=== PATIENT | male | born 1965 | race Caucasian/White ===

== ENCOUNTER → 2017-08-27 08:31 | Outpatient (CLI) | payer BC, SELFPAY ==
[2017-08-27 10:19] LABS: Alanine Aminotransferase 29 U/L (12-78); Albumin Level 3.9 gm/dL (3.4-5.0); Albumin/Globulin Ratio 1.4 (1.1-1.8); Alkaline Phosphatase 60 U/L (46-116); Anion Gap 12.5 mEq/L (5-15); Aspartate Amino Transferase 16 U/L (15-37); Bilirubin,Total 0.5 mg/dL (0.2-1.0); Blood Urea Nitrogen 17 mg/dL (7-18); Calcium 8.8 mg/dL (8.5-10.1); Carbon Dioxide 26 mmol/L (21.0-32.0); Chloride 105 mmol/L (98-107); Chol/HDL Ratio 4.4 (1-3.5); Cholesterol 226 mg/dL (140-200); Creatinine,Serum 1.07 mg/dL (0.70-1.30); Estimated Glomerular Filt Rate 72 ml/min (>60); GFR (African American) 87 ML/MIN (>60); Globulin 2.7 gm/dl (1.3-3.2); Glucose 101 mg/dL (74-106); HDL Cholesterol 51 mg/dL (27-67); LDL Cholesterol 151 mg/dL (0-130); Potassium 4.5 mmoL/L (3.5-5.1); Sodium 139 mmol/L (136-145); Total Protein,Serum 6.6 gm/dL (6.4-8.2); Triglycerides 122 mg/dL (30-200); VLDL Cholesterol 24 mg/dL (0-40)
[2017-08-27 14:54] LABS: Hemoglobin A1C 5.7 % (0.0-7.0)
[2017-08-29 18:09] LABS: Vitamin D 25 Hydroxy 40.2 ng/mL (30.0-100.0)
== END ==
PROVIDERS: PCP Family Medicine; Visit Provider Family Medicine
DX: R73.01 Impaired fasting glucose (principal); E55.9 Vitamin D deficiency, unspecified; Z12.5 Encounter for screening for malignant neoplasm of prostate; Z13.220 Encounter for screening for lipoid disorders
CPT/HCPCS: 36415; 80053; 80061; 82652; 83036; G0103

== ENCOUNTER → 2018-05-17 07:21 | Outpatient (CLI) | payer BC, SELFPAY ==
[2018-05-17 10:00] LABS: Hemoglobin A1C 5.1 % (0.0-7.0)
[2018-05-17 10:17] LABS: Alanine Aminotransferase 27 U/L (12-78); Albumin Level 3.6 gm/dL (3.4-5.0); Albumin/Globulin Ratio 1.3 (1.1-1.8); Alkaline Phosphatase 42 U/L (46-116); Anion Gap 11.4 mEq/L (5-15); Aspartate Amino Transferase 18 U/L (15-37); Bilirubin,Total 0.4 mg/dL (0.2-1.0); Blood Urea Nitrogen 12 mg/dL (7-18); Calcium 8.6 mg/dL (8.5-10.1); Carbon Dioxide 28 mmol/L (21.0-32.0); Chloride 106 mmol/L (98-107); Creatinine,Serum 1.27 mg/dL (0.70-1.30); Estimated Glomerular Filt Rate 59 ml/min (>60); GFR (African American) 71 ML/MIN (>60); Globulin 2.7 gm/dl (1.3-3.2); Glucose 93 mg/dL (74-106); Potassium 4.4 mmoL/L (3.5-5.1); Prostate Specific Ag, Diagnost 4.31 ng/mL (0.0-4.0); Sodium 141 mmol/L (136-145); Thyroid Stimulating Hormone 0.78 uIU/ml (0.358-3.740); Total Protein,Serum 6.3 gm/dL (6.4-8.2)
== END ==
PROVIDERS: PCP Family Medicine; Visit Provider Family Medicine
DX: E16.2 Hypoglycemia, unspecified (principal); Z85.46 Personal history of malignant neoplasm of prostate
CPT/HCPCS: 36415; 80053; 83036; 84153; 84443

== ENCOUNTER → 2018-05-31 07:07 | Outpatient (CLI) | payer BC, SELFPAY ==
[2018-05-31 07:10] LABS: Microscopic, Urine URINE MICROSCOPIC (MICROSCOPIC)
[2018-05-31 07:42] LABS: Appearance,Urine CLEAR (Clear); Bilirubin,Urine Negative (Negative); Blood, Urine Negative (Negative); Color,Urine YELLOW (Yellow); Glucose,Urine (UA) Negative (Negative); Ketones,Urine Negative (Negative); Leukocyte Esterase,Urine Negative (Negative); Nitrate,Urine Negative (Negative); PH,Urine 7.5 (5.0-8.5); Protein,Urine Negative (Negative); Urobilinogen,Urine 0.2 EU/dl (0.2)
[2018-05-31 08:02] LABS: Bacteria,Urine Trace /lpf; Squamous Epithelial Cell,Urine Occasional #/hpf (0-5); WBC,Urine Occasional #/hpf (0-3)
[2018-06-01 15:20] LABS: PSA, Free 0.53 ng/mL; Prostate Specific Ag 3.8 ng/mL (0.0-4.0)
== END ==
PROVIDERS: Visit Provider Family Medicine
DX: R97.20 Elevated prostate specific antigen [PSA] (principal)
CPT/HCPCS: 36415; 81001; 84153; 84154

== ENCOUNTER → 2018-07-18 15:55 | Outpatient (CLI) | payer BC, SELFPAY | PROVIDERS: PCP Family Medicine; Visit Provider Family Medicine | DX: I49.9 Cardiac arrhythmia, unspecified (principal) | CPT/HCPCS: 93225; 93226 ==

== ENCOUNTER 2018-10-30 08:00 | Outpatient (RCR) | payer BC, SELFPAY | END 2018-10-30 08:05 | disposition home or self-care (01) | LOC: OT 08:00 | PROVIDERS: Visit Provider Family Medicine | DX: M25.522 Pain in left elbow (principal) | CPT/HCPCS: 97014; 97035; 97140; 97165; G0283 ==

== ENCOUNTER → 2018-12-30 08:47 | Outpatient (CLI) | payer BC, SELFPAY ==
[2018-12-30 09:54] LABS: Hemoglobin A1C 5.3 % (0.0-7.0)
[2018-12-30 10:20] LABS: Alanine Aminotransferase 25 U/L (12-78); Albumin Level 3.6 gm/dL (3.4-5.0); Albumin/Globulin Ratio 1.3 (1.1-1.8); Alkaline Phosphatase 53 U/L (46-116); Anion Gap 13.6 mEq/L (5-15); Aspartate Amino Transferase 18 U/L (15-37); Bilirubin,Total 0.4 mg/dL (0.2-1.0); Blood Urea Nitrogen 13 mg/dL (7-18); Calcium 8.4 mg/dL (8.5-10.1); Carbon Dioxide 27 mmol/L (21.0-32.0); Chloride 103 mmol/L (98-107); Chol/HDL Ratio 4.5 (1-3.5); Cholesterol 179 mg/dL (140-200); Creatinine,Serum 1.25 mg/dL (0.70-1.30); Estimated Glomerular Filt Rate 60 ml/min (>60); Free T4 (Free Thyroxine) 0.97 ng/dl (0.76-1.46); GFR (African American) 73 ML/MIN (>60); Globulin 2.7 gm/dl (1.3-3.2); Glucose 98 mg/dL (74-106); HDL Cholesterol 40 mg/dL (27-67); LDL Cholesterol 128 mg/dL (0-130); Potassium 4.6 mmoL/L (3.5-5.1); Prostate Specific Ag Screen 3.7 ng/mL (0.0-4.0); Sodium 139 mmol/L (136-145); Thyroid Stimulating Hormone 0.74 uIU/ml (0.358-3.740); Total Protein,Serum 6.3 gm/dL (6.4-8.2); Triglycerides 53 mg/dL (30-200); VLDL Cholesterol 11 mg/dL (0-40)
[2019-01-05 06:16] LABS: Vitamin D 25 Hydroxy 46.5 ng/mL (30.0-100.0)
== END ==
PROVIDERS: Visit Provider Family Medicine
DX: R97.20 Elevated prostate specific antigen [PSA] (principal); R53.83 Other fatigue; R73.01 Impaired fasting glucose; E55.9 Vitamin D deficiency, unspecified
CPT/HCPCS: 36415; 80053; 80061; 82652; 83036; 84403; 84439; 84443; G0103

== ENCOUNTER → 2020-02-26 08:24 | Outpatient (CLI) | payer BC, SELFPAY ==
[2020-02-26 09:13] LABS: Chloride 103 mmol/L (98-107)
[2020-02-26 09:14] LABS: Potassium 4.3 mmoL/L (3.5-5.1); Sodium 138 mmol/L (136-145)
[2020-02-26 09:16] LABS: Alanine Aminotransferase 21 U/L (12-78); Alkaline Phosphatase 51 U/L (38-126); Aspartate Amino Transferase 26 U/L (17-59); Bilirubin,Total 0.7 mg/dl (0.2-1.3); Blood Urea Nitrogen 17 mg/dl (9-20); Estimated Glomerular Filt Rate 77 ml/min (>60); GFR (African American) 94 ML/MIN (>60)
[2020-02-26 09:17] LABS: Albumin Level 4.2 g/dl (3.5-5.0); Albumin/Globulin Ratio 1.7 (1.1-1.8); Anion Gap 12.3 mEq/L (5-15); Calcium 8.9 mg/dl (8.4-10.2); Carbon Dioxide 27 mmol/L (22.0-30.0); Globulin 2.5 g/dL (1.3-3.2); Glucose 106 mg/dl (74-100); Total Protein,Serum 6.7 g/dl (6.3-8.2)
[2020-02-26 09:33] LABS: 25-OH Vitamin D, Total 42.4 ng/mL (30-100)
[2020-02-26 09:36] LABS: Hemoglobin A1C 5.4 % (4.0-6.0)
[2020-02-26 11:13] LABS: Prostate Specific Ag Screen 3.9 ng/ml (0.0-4.0)
[2020-02-26 13:34] LABS: Coronavirus 19 IgG Antibody Negative (Negative); Coronavirus 19 IgM Antibody Negative (Negative)
[2020-02-27 20:02] LABS: PSA, Free 0.57 ng/mL; Prostate Specific Ag 4.1 ng/mL (0.0-4.0)
[2020-02-28 10:31] LABS: Chol/HDL Ratio 5.3 (1-3.5); Cholesterol 235 mg/dl (140-200); HDL Cholesterol 44 mg/dl (40-60); Triglycerides 162 mg/dl (30-150); VLDL Cholesterol 32 mg/dL (0-40)
[2020-02-28 10:42] LABS: Direct LDL Cholesterol 163.06 mg/dL (100-129)
== END ==
PROVIDERS: Visit Provider Family Medicine
DX: Z03.818 Encounter for observation for suspected exposure to other biological agents ruled out (principal); R97.20 Elevated prostate specific antigen [PSA]; R73.01 Impaired fasting glucose; E55.9 Vitamin D deficiency, unspecified
CPT/HCPCS: 36415; 80053; 80061; 82306; 83036; 84153; 84154; 86328; G0103

== ENCOUNTER → 2020-11-21 14:25 | Outpatient (CLI) | payer BC, SELFPAY | PROVIDERS: PCP Family Medicine; Visit Provider Family Medicine | DX: Z20.822 Contact with and (suspected) exposure to COVID-19 (principal); U07.1 COVID-19 | CPT/HCPCS: U0003 ==

== ENCOUNTER → 2021-02-28 08:30 | Outpatient (CLI) | payer BC, SELFPAY | PROVIDERS: Visit Provider Internal Medicine Gastroenterology | DX: Z01.812 Encounter for preprocedural laboratory examination (principal); Z11.52 Encounter for screening for COVID-19; Z13.810 Encounter for screening for upper gastrointestinal disorder | CPT/HCPCS: U0003 ==

== ENCOUNTER 2021-03-02 10:08 | Day surgery (SDC) | payer BC, SELFPAY ==
[2021-02-27 11:48] VITALS: BMI 31.6
[2021-03-02 10:32] VITALS: BP 132/75; PULSE 52; RESP 16; TEMP 36.4; O2SAT 95
--- NOTE | 2021-03-02 11:39 | P.PN_ITS ---
[facility] Anesthesia Checklist - Structural Data Admitted From: Home Planned Operative Procedure/s: egd Consent for Planned Operative Procedure(s) Verified: Yes - Additional verifications Anesthesia Reactions: No Hx Blood Transfusions: No Blood Transfusion Reaction: No - Airway Assessment C-Spine Mobility Assessed: Yes TMJ Mobility Assessed: Yes Dentition: Good Dentition - Neurological Assessment Level of Consciousness: Awake, Alert, Appropriate - Anesthesia Plan Anesthesia Risk discussed: Yes Anesthesia Plan: Verified ASA Class: II Anesthesia Type: MAC [facility] History I have reviewed the patient's past medical history: Yes Medical History: Denies:: Cancer, Diabetes Mellitus Type 1, Diabetes Mellitus Type 2, Internal Pacemaker, MRSA, Seizures *Have you ever received a pneumonia vaccine?: No *Have you received a flu vaccine this season?: No Other Medical History: Denies: Blood Transfusion Reaction Anesthesia experience/problems:: none Other Surgeries: Yes: No Previous Surgery. No: Pacemaker Amputation: No Fractures: No - *Social History Last grade of school completed: Advanced degree Smoking Status: Never smoker Alcohol Intake: current Alcohol Intake Frequency:: a few times a week Substance Use Type: denies use *Occupational Status:: employed Housing: house Household Members: significant other *Travel in the last 8 weeks: None Family Hx:: No significant family history
--- NOTE | 2021-03-02 11:54 | HMH.PROC ---
[facility] Procedure Note Procedure Note:: Upper Endoscopy Procedure Report: Esophagogastroduodenoscopy with cold biopsies Endoscopost: Cristobal Corley II, MD Referring Physician: Cristi Castelan MD Date of Procedure: March 02, 2021 Equipment: Olympus GIF 190 standard upper endoscope Sedation: MAC sedation Indications: Mr. Lawler is a 55-year-old gentleman who reports minor reflux. He is unable to reduce Prilosec from twice daily dosing to once daily. He does state that this happened after his Covid?19 infection in October 2020 (11/15). He has had dyspepsia with midepigastric abdominal discomfort and some nausea. He reports some bloating and belching. He has had regular bowel function. He did have an upper endoscopy nearly 30 years ago in [place]. Procedure: Prior to the procedure, a history and physical exam was performed, and patient's medications and allergies were reviewed. The risks, benefits and alternatives of the sedation and procedure were discussed with the patient. All questions were answered and informed consent was obtained. The patient was brought to the procedure room. Patient identification and proposed procedure were verified by the physician and the nurse. The patient was placed in a left lateral decubitus position and the scope was passed under direct vision. Throughout the procedure, the patient's blood pressure, pulse, and oxygen saturations were monitored continuously. The upper GI endoscopy was accomplished without difficulty. The patient tolerated the procedure well. Findings: The scope was passed directly into the upper esophagus and advanced to the third portion of the duodenum. The post bulbar duodenum and duodenal bulb were normal with normal mucosa and conniventes. The scope was withdrawn through a normal duodenal bulb and pylorus into the stomach. There was bile reflux with mild linear reactive gastropathy of the antrum. The remainder of the body and fundus of the stomach were grossly normal. Upon retroflexion there was a small 1 to 2 cm sliding hiatal hernia. 2 biopsies were taken in the antrum and along the lesser curvature for histology to rule out gastritis and/or H pylori. There was a gastric fundic polyp that was removed via cold biopsy. The scope was then withdrawn into the esophagus. There was no evidence of reflux esophagitis or Lipscomb's. There was a serrated Z-line suggestive of nonerosive GERD. Biopsies were taken at the GE junction. There was mild esophageal dysmotility with tertiary contractions. The remainder of the esophageal mucosa was normal. Impression: 1. Nonerosive GERD with mild esophageal dysmotility and very small sliding 1 to 2 cm hiatal hernia 2. Bile reflux with mild linear reactive gastropathy 3. Gastric fundic polyp Plan: I will follow-up the biopsies. 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 We will discuss additional dietary measures and treatment options. I suspect this may be related to some obstipation. I would consider FDgard. The patient does have uncomplicated GERD and thus I would like to reduce PPI therapy. I will see patient back again at time of colonoscopy.
[2021-03-02 12:00] VITALS: BP 95/57; PULSE 44; RESP 12; TEMP 36.4; O2SAT 93
[2021-03-02 12:10] VITALS: BP 120/70; PULSE 53; RESP 16; O2SAT 96
[2021-03-02 12:20] VITALS: BP 119/82; PULSE 53; RESP 16; O2SAT 96
[2021-03-02 12:30] VITALS: PULSE 56; RESP 16; TEMP 36.4; O2SAT 99
[2021-03-02 13:41] VITALS: O2SAT 99
== END 2021-03-02 12:30 | disposition home or self-care (01) ==
LOC: OUTP 10:11
PROVIDERS: PCP Family Medicine; Visit Provider Internal Medicine Gastroenterology
PROC: 0DJ08ZZ Inspection of Upper Intestinal Tract, Via Natural or Artificial Opening Endoscopic (ICD-10-PCS; CPT 43235; principal; 2021-03-02 11:00)
DX: K30 Functional dyspepsia (principal); K21.9 Gastro-esophageal reflux disease without esophagitis; K22.4 Dyskinesia of esophagus; K31.9 Disease of stomach and duodenum, unspecified; K44.9 Diaphragmatic hernia without obstruction or gangrene; K31.7 Polyp of stomach and duodenum; Z79.899 Other long term (current) drug therapy
CPT/HCPCS: 43239

== ENCOUNTER → 2021-04-24 16:40 | Outpatient (CLI) | payer BC, SELFPAY | PROVIDERS: Visit Provider Internal Medicine Gastroenterology | DX: Z01.812 Encounter for preprocedural laboratory examination (principal); Z11.52 Encounter for screening for COVID-19; Z12.11 Encounter for screening for malignant neoplasm of colon | CPT/HCPCS: C9803; U0003; U0005 ==

== ENCOUNTER 2021-04-27 09:53 | Day surgery (SDC) | payer BC, SELFPAY ==
[2021-04-23 14:26] VITALS: BMI 30.5
[2021-04-27 10:21] VITALS: BP 135/75; PULSE 55; RESP 18; TEMP 36.6; O2SAT 98
--- NOTE | 2021-04-27 10:37 | HMH.ANESCL ---
[facility] Anesthesia Checklist - Patient Identification Patient Identification: Arm Band, Verbal (Name & ) - Structural Data Admitted From: Home Planned Operative Procedure/s: Colonoscopy Consent for Planned Operative Procedure(s) Verified: Yes Verified Documents: Surgical Consent - NPO Status Verified Time NPO: 05:00 - Additional verifications Anesthesia Reactions: No Hx Blood Transfusions: No Blood Transfusion Reaction: No - Airway Assessment C-Spine Mobility Assessed: Yes TMJ Mobility Assessed: Yes Dentition: Good Dentition - Neurological Assessment Level of Consciousness: Awake, Alert, Appropriate - Anesthesia Plan Anesthesia Risk discussed: Yes ASA Class: II Anesthesia Type: General [facility] History Medical History: Denies:: Cancer, Diabetes Mellitus Type 1, Diabetes Mellitus Type 2, Internal Pacemaker, MRSA, Seizures *Have you ever received a pneumonia vaccine?: No *Have you received a flu vaccine this season?: No Other Medical History: Denies: Blood Transfusion Reaction Anesthesia experience/problems:: no issues Other Surgeries: Yes: No Previous Surgery. No: Pacemaker Amputation: No Fractures: No - *Social History Last grade of school completed: High school graduate Smoking Status: Never smoker Alcohol Intake: current Alcohol Intake Frequency:: a few times a week Substance Use Type: denies use *Occupational Status:: employed Housing: house Household Members: significant other *Travel in the last 8 weeks: None Family Hx:: No significant family history
--- NOTE | 2021-04-27 11:39 | P.PCN_ITS ---
[facility] Procedure Note Procedure Note:: Colonoscopy Procedure Report: Colonoscopy with cold snare polypectomy Endoscopist: Cristobal Corley II, MD Referring physician: Cristi Castelan MD Date of Procedure: April 27, 2021 Equipment: Olympus 190 variable stiffness pediatric colonoscope Sedation: MAC sedation Indication: Mr. Lawler is a 56-year-old gentleman who is here for initial screening colonoscopy. He reports no abdominal pain, weight loss, change in his bowel habits or rectal bleeding. He reports no family history of colon cancer. Procedure: Prior to the procedure, a history and physical exam was performed, and patient's medications and allergies were reviewed. The risks, benefits and alternatives of the sedation and procedure were discussed with the patient. All questions were answered and informed consent was obtained. The patient was brought to the procedure room. Patient identification and proposed procedure were verified by the physician and the nurse. The patient was placed in a left lateral decubitus position and the scope was passed under direct vision. Throughout the procedure, the patient's blood pressure, pulse, and oxygen saturations were monitored continuously. The colonoscopy was accomplished without difficulty. The patient tolerated the procedure well. Findings: On digital rectal examination there was normal rectal tone. There were no external hemorrhoids. The prostate was 2-3+, mildly firm but symmetric without nodules. The colonoscope was introduced through the anal canal to the rectum and advanced to the cecum. The ileocecal valve and appendiceal orifice were identified. The scope was advanced a short distance into the ileum which appeared grossly normal. The scope was then withdrawn into the colon. The cecum, ascending and transverse colon and mucosa were grossly normal. There was a 4 mm polyp in the descending colon removed via cold snare polypectomy. There were mildly scattered diverticuli throughout the descending and sigmoid colon (LEFT colon). The rectum itself was normal. Upon retroflexion within the rectum there were grade 1-2 internal hemorrhoids. The preparation was excellent throughout with [place] Preparation Score of 9. The cecal time was 12 minutes. Impression: 1. Diminutive descending colon polyp 2. Mild left-sided diverticulosis 3. Grade 1-2 internal hemorrhoids Plan: I will follow up the polyp pathology and recommend repeat colonoscopy again in 7-10 years based upon the polyp histology. I would encourage bulking fiber supplementation on a long-term daily maintenance basis.
[2021-04-27 11:43] VITALS: BP 111/70; PULSE 46; RESP 12; TEMP 36.3; O2SAT 94
[2021-04-27 11:53] VITALS: BP 111/72; PULSE 42; RESP 12; O2SAT 95
[2021-04-27 12:03] VITALS: BP 127/72; PULSE 64; RESP 16; O2SAT 98
[2021-04-27 12:13] VITALS: BP 130/79; PULSE 62; RESP 16; TEMP 36.3; O2SAT 98
[2021-04-27 13:27] VITALS: O2SAT 94
== END 2021-04-27 12:13 | disposition home or self-care (01) ==
LOC: OUTP 09:54
PROVIDERS: PCP Family Medicine; Visit Provider Internal Medicine Gastroenterology
PROC: 0DJD8ZZ Inspection of Lower Intestinal Tract, Via Natural or Artificial Opening Endoscopic (ICD-10-PCS; CPT 45378; principal; 2021-04-27 11:00)
DX: Z12.11 Encounter for screening for malignant neoplasm of colon (principal); K63.5 Polyp of colon; K57.32 Diverticulitis of large intestine without perforation or abscess without bleeding; K64.0 First degree hemorrhoids; Z79.899 Other long term (current) drug therapy
CPT/HCPCS: 45385

== ENCOUNTER → 2022-04-28 09:02 | Outpatient (CLI) | payer BC, SELFPAY ==
[2022-04-28 10:27] LABS: Anion Gap 12.5 mEq/L (5-15); Blood Urea Nitrogen 11 mg/dl (9-20); Carbon Dioxide 26 mmol/L (22.0-30.0); Chloride 104 mmol/L (98-107); Chol/HDL Ratio 4.4 (1-3.5); Cholesterol 201 mg/dl (140-200); Estimated Glomerular Filt Rate 86 ml/min (>60); GFR (African American) 105 ML/MIN (>60); Glucose 95 mg/dl (74-100); HDL Cholesterol 46 mg/dl (40-60); Potassium 4.5 mmoL/L (3.5-5.1); Sodium 138 mmol/L (136-145); Triglycerides 146 mg/dl (30-150); VLDL Cholesterol 29 mg/dL (0-40)
[2022-04-28 10:38] LABS: Direct LDL Cholesterol 125.62 mg/dL (100-129)
[2022-04-28 10:44] LABS: 25-OH Vitamin D, Total 55.3 ng/mL (30-100)
[2022-04-28 10:57] LABS: Prostate Specific Ag, Diagnost 3.55 ng/ml (0.0-4.0)
[2022-04-28 11:18] LABS: Hemoglobin A1C 5.5 % (4.0-6.0)
== END ==
PROVIDERS: PCP Family Medicine; Visit Provider Family Medicine
DX: R73.01 Impaired fasting glucose (principal); E55.9 Vitamin D deficiency, unspecified; R97.20 Elevated prostate specific antigen [PSA]; Z13.220 Encounter for screening for lipoid disorders
CPT/HCPCS: 36415; 80048; 80061; 82306; 83036; 84153

== ENCOUNTER → 2024-06-01 06:11 | Outpatient (CLI) | payer BC, SELFPAY | LOC: SL 06:12 | PROVIDERS: PCP Family Medicine; Visit Provider Family Medicine | DX: G47.10 Hypersomnia, unspecified (principal); R06.83 Snoring | CPT/HCPCS: G0399 ==

== ENCOUNTER 2024-07-10 15:00 | Outpatient (RCR) | payer BC, SELFPAY ==
--- NOTE | 2024-05-02 11:58 | HMH.PTOPEV ---
PT Outpatient Evaluation Rehab PT Outpatient Evaluation Start: 05/02/24 10:15 Freq: Status: Active Protocol: Document 05/02/24 10:46 DIVINA (Rec: 05/02/24 11:58 DIVINA [id number]) E-signed By Chucho Ballard, PT Outpatient Therapy Subjective History Subjective History Pt reports h/o chronic neck and right UE pain for ~6 months, w/exacerbation over the last ~3 months. Pt reports neck began w/insidious onset, intermittent experiences radicular s/s down right UE to hand including weakness, pain , and N&T. 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 New diagnosis of cancer in past 12 No months? Chief Complaint Pain,Stiff,Paresthesia, Weakness Symptom Type Ache,Sharp,Dull,Numbness, Shooting Symptoms Relieved By Rest/Positioning,Prescription Meds Symptoms Aggravated By Sitting,Bending/Stooping Prior Functional Limitations Desk Work/Reading,Driving, Sitting Current Functional Limitations Desk Work/Reading,Driving, Sitting Symptom Description Constant but Variable Level of pain today (0-10) 4 Pain scale - at its best (0-10) 3 Pain scale - at its worst (0-10) 8 Cervical Eval Palpation Cervical Muscles R Cervical Paraspinal,L Cervical Paraspinal,R CT Junction,R Upper Trapezius,L Upper Trapezius,R Thoracic Paraspinals,L Thoracic Paraspinals Posture Head/C-Spine Posture Sitting Position Flexed Head/C-Spine Posture Standing Position Flexed Flexibility Deficits Upper Trapezius Muscle Length (L) Mild Tightness,(R) Moderate Tightness Pectoralis Major Muscle Length (R) Moderate Tightness,(L) Moderate Tightness Pectoralis Minor Muscle Length (R) Moderate Tightness,(L) Moderate Tightness Passive Joint Mobility Cervical PIVM WNL: R OA L OA R AA L AA R C2/3 L C2/3 R C3/4 L C3/4 R C4/5 L C4/5 R C5/6 L C5/6 R C6/7 L C6/7 R C7/T1 L C7/T1 AROM Cervical Spine Extension Active Range of 0-40 Motion (degrees) Cervical Spine Flexion Active Range of 0-55 Motion (degrees) Cervical Spine Right Lateral Flexion 0-40 Active Range of Motion (degrees) Cervical Spine Left Lateral Flexion 0-60 Active Range of Motion (degrees) Cervical Spine Right Rotation Active 0-65 Range of Motion (degrees) Cervical Spine Left Rotation Active 0-65 Range of Motion (degrees) MMT Bilateral Deltoid (C5) 5 Normal Biceps Brachii Strength Grade 5 Normal Wrist Extension Strength Grade 5 Normal Triceps Brachii Strength Grade 5 Normal Wrist Flexion Strength Grade 5 Normal Extensor Pollicis Longus Strength Grade 4 Good Finger Abduction Strength Grade 5 Normal Special Test C-Spine Foraminal Compression ([place]) Negative Left,Positive Right Test C-Spine Foraminal Distraction Test Positive Outpatient Therapy Assessment Impairments Problems/Impairmments Palpation Tenderness,Impaired Range of Motion,Impaired Sitting,Impaired Driving, Impaired Desk/Computer Activities,Subjective C/O Pain ,Impaired Self Care/Self Management Prognosis Rehab Potential Good Clinical Impression Consistent with Diagnosis Yes Short Term Goals Number of Weeks 4 Decreased Palpation Tenderness Yes: 1-2/4 cervical and thoracic mm Increase Range of Motion Yes: 75% of WFL CROM Increase Ability to Sit Yes: 30MIN Increase Ability to Drive/Ride in Car Yes: 30MIN Improve Tolerance to Desk/Computer Yes: 30MIN Activities Decrease Subjective C/O Pain Yes: 5/10 W/ABOVE ACTIVITIES Patient to be Ind w/ HEP Yes Prison Goals Number of Weeks 6-8 Decreased Palpation Tenderness Yes: 0-1/4 CERVICAL AND THORACIC MM Increase Range of Motion Yes: WFL CROM Increase Ability to Sit Yes: 60MIN Increase Ability to Drive/Ride in Car Yes: 60MIN Improve Tolerance to Desk/Computer Yes: 60MIN Activities Decrease Subjective C/O Pain Yes: 0-2/10 W/ABOVE ACTIVITIES Patient to be Ind w/ Advanced HEP Yes Outpatient Therapy Plan of Care Treatment Plan May Include Therapeutic Exercise Including Home Yes Exercise Program Manual Therapy Techniques Yes Neuromuscular Re-education Yes Therapeutic Activities to Return to Yes Previous Functional/Work Level ADL/Self Care Education Yes Mechanical Traction Yes Dry Needling Yes Thermal Modalities Yes Electrical Stimulation Yes Ultrasound/Phonophoresis Yes Eval/Re-Eval Yes Frequency Times per week 2-3 Duration Number of Weeks 6-8 Addendums This patient is a candidate for social No or vocational rehab? Patient/Guardian verbally acknowledges Yes understanding of treatment program and consents to further treatment? Patient/Guardian verbally acknowledges Yes understanding of diagnosis, prognosis and goals for treatment? Eval Complexity PT Charges 44929 - Moderate Complexity Shoulder/Elbow Eval Shoulder Objective Measurements Elbow Objective Measurements PHYSICIAN CERTIFICATION: I certify the specified therapy services for Santana Lawler are required, authorized, and reviewed every 30 days.
--- NOTE | 2024-06-04 13:51 | HMH.RHREAS ---
Rehab Reassessment Rehab OP Re-assessment Start: 05/02/24 10:15 Freq: Status: Active Protocol: Document 06/04/24 11:22 MALCOLMMATILDE (Rec: 06/04/24 13:51 SHAYNAFUNMI [id number]) E-signed By Chucho Ballard, PT Rehab Re-assessment Subjective Subjective Pt reports continued improvement in both neck and right shoulder pain. 'I'm able to golf without issue, and I drove a fair amount over the weekend and it didn't really cause any issues.' Pt does still report discomfort w/ prolonged positioning at work- station in office setting despite making some ergonomic changes. Pt reports 4/10 neck and right shoulder area pain on VAS, and denies any radicular s/s in RUE. Objective Objective Notes CROM: FLX 0-60 ,EXT 0-65 , B/L SB 0-55 , B/L ROT 0-70 . TTP: CERVICO-THORACIC PARASPINAL MM 1/4 BILATERALLY, BILATERAL UT MM 1/4, POSTERIOR RIGHT SH/RTC MM 1-2/ 4, ANTERIOR RTC MM 1/4 MMT: RIGHT SHOULDER RTC MM 4+/ 5 Assessment Progress Assessment Progressing as Expected Assessment Notes IMPROVED ROM, TTP, AND OVERALL FUNCTION Patient goals met STG'S 01/07 LTG'S 11/07 Goals Not Met STG'S 10/07, LTG'S 12/07 Plan Plan Pt to continue w/skilled P.T. to make further improvements in CROM, right shoulder AROM, strength, and TTP to allow for optimal function Frequency of Therapy 1-2x/wk Duration of therapy 3-5wks Time and Billing Re-Eval Time 12 Re-Eval Billing Units 1 Charge for PT reassessment? Yes PHYSICIAN CERTIFICATION: I certify the specified therapy services for Santana Lawler are required, authorized, and reviewed every 30 days.
--- NOTE | 2024-07-04 14:58 | HMH.RHREAS ---
Rehab Reassessment Rehab OP Re-assessment Start: 05/02/24 10:15 Freq: Status: Active Protocol: Document 07/04/24 13:49 DIVINA (Rec: 07/04/24 14:58 SHAYNAFUNMI [id number]) E-signed By Chucho Ballard, PT Rehab Re-assessment Subjective Subjective Pt reports continued improvement in neck and right shoulder pain as well as function, and reports recently driving as long as 3 hrs for a work-related trip and no having any increased neck discomfort. Objective Objective Notes AROM: RIGHT SHOULDER FLX WFL, ABD WFL W/O PAINFUL ARC CROM: FLX 0-60 ,EXT 0-65 , B/L SB 0-60 , B/L ROT 0-70 . TTP: CERVICO-THORACIC PARASPINAL MM 1/4 BILATERALLY, BILATERAL UT MM 1/4, POSTERIOR RIGHT SH/RTC MM 0-1/ 4, ANTERIOR RTC MM 1/4, CT JUNCTION S.P. 1-2/4 MMT: RIGHT SHOULDER RTC MM 4+/ 5 Assessment Progress Assessment Progressing as Expected Assessment Notes Pt w/slight improvement in TTP in neck and shoulder musculature, and has exhibited significant improvement in right shoulder AROM w/ elimination of painful arc, as well as slight improvement in CROM Patient goals met STG'S 03/09 LTG'S 01/07 Goals Not Met STG'S 08/09, LTG'S 10/07 Plan Plan Pt to continue w/skilled P.T. to make further improvements in CROM, right shoulder/ postural strength, and TTP to allow for optimal function Frequency of Therapy 1-2x/wk Duration of therapy 2-4wks Time and Billing Re-Eval Time 12 Re-Eval Billing Units 0 Charge for PT reassessment? No PHYSICIAN CERTIFICATION: I certify the specified therapy services for Santana Lawler are required, authorized, and reviewed every 30 days.
== END 2024-07-10 23:59 | disposition home or self-care (01) ==
LOC: PT 15:00
PROVIDERS: Visit Provider Family Medicine
DX: M54.2 Cervicalgia (principal); M54.12 Radiculopathy, cervical region; M79.601 Pain in right arm
CPT/HCPCS: 97012; 97014; 97110; 97140; 97163; 97164; G0283

== ENCOUNTER 2025-02-26 13:00 | Outpatient (RCR) | payer BC, SELFPAY ==
--- NOTE | 2025-01-30 17:34 | HMH.PTOPEV ---
PT Outpatient Evaluation Rehab PT Outpatient Evaluation Start: 01/30/25 15:58 Freq: Status: Active Protocol: Document 01/30/25 15:58 ALAIYAH (Rec: 01/30/25 17:33 [email or web address] [id number]) E-signed By Gustavo Frederick, PT Outpatient Therapy Subjective History Subjective History Pt is a 59 yom who is referred to [facility] outpatient PT for recurrent low back pain with right sided sciatica. The pt reports that this began in 2012 after he ran a half marathon. The pt reports that he will have flare ups, which he typically will manage with stretching and muscle relaxers. Pt reports that he has been to PT before and reports that he responded well to traction and stim. Pt reports that sitting and driving are his biggest difficulties. PMH: none Occupation: [employer] New diagnosis of No cancer in past 12 months? Chief Complaint Pain,Stiff Symptom Type Burning Symptoms Relieved By Heat Symptoms Aggravated Sitting By Prior Functional None Limitations Current Functional Lifting,Sitting,Squatting,Bending/Stooping Limitations Symptom Description Constant but Variable,Activity Dependent Level of pain today 3 (0-10) Pain scale - at its 2 best (0-10) Pain scale - at its 7 worst (0-10) Lumbopelvic Eval Posture Thoracic Spine Increased Kyphosis Posture Standing Position Lumbar Spine Posture Flattened Standing Position Palapation tenderness bilateral lumbar spinal Yes: L3-L5 TTP 3/4 tenderness paraspinal Yes: L3-L5 R side TTP 3/4 tenderness Accessory Movement L3 bilateral L4 bilateral L5 bilateral Range of Motion Lumbar Spine Active 75% Flexion Range of Motion (degrees) Lumbar Spine Active 10% Extension Range of Motion (degrees) Left Lumbar Spine 50% Lateral Flexion Active Range of Motion (degrees) Right Lumbar Spine 50% Lateral Flexion Active Range of Motion (degrees) Lumbar Spine ROM Soft Tissue Tightness,Pain Limitations Manual Muscle Test Bilateral Knee Extension 5 Normal Strength Grade Knee Flexion 5 Normal Strength Grade Hip Flexion Strength 5 Normal Grade Hip Abduction 5 Normal Strength Grade Hip Adduction 5 Normal Strength Grade Hip External 5 Normal Rotation Strength Grade Altered Sensation Comment Intact to LT globally Special Tests Lumbar Spine Screen Positive Sciatic Nerve Positive Right Tension Test Sacroiliac Joint Negative Right Compression Test Sacroiliac Joint Negative Right Distraction Test Lumbar Spine [place] Negative Right Test Oswestry Index Section 1 Pain Intensity The pain comes and goes and is moderate Section 2 Personal Care ( my way of washing or dressing even though it causes Washing,Dresing) some pain Section 3 Lifting Pain prevents me from lifting weights off the floor Section 4 Walking I have some pain when walking but it does not increase with distance Section 5 Sitting Pain prevents me from sitting for more than one hour Section 6 Standing I have some pain on standing, but it does not increase with time Section 7 Sleeping I get pain in bed, but it does not prevent me from sleeping well Section 8 Social Life My social life is normal but increases the degree of pain Section 9 Traveling I get extra pain while traveling, but it does not compel me to seek al Section 10 Changing Degreee of My pain is gradually getting worse Pain Score and Risk Level Oswestry Sc 17 Oswestry Risk Level Moderate Disability Miscellaneous Dx PT Eval Objective Objective Abdominal Strength: 3/5 Outpatient Therapy Assessment Impairments Problems/ Palpation Tenderness,Impaired Range of Motion,Impaired Impairmments Strength,Impaired Walking,Impaired Sitting,Impaired Bending,Impaired Work Activities,Subjective C/O Pain Prognosis Rehab Potential Good Clinical Impression Consistent with Yes Diagnosis Consistent with Sciatic (M54.3) Short Term Goals Number of Weeks 4 Decreased Palpation Yes: 2/4 to TTP assessment above Tenderness Increase Range of Yes: 25-50% Lumbar extension Motion Increase Strength Yes: 4/5 to Abdominal msk Increase Ability to Yes: 1 hour without increasing symptoms Sit Improve Oswestry Yes: <12 Score Decrease Subjective Yes: 5/10 with above assessment C/O Pain Patient to be Ind w/ Yes HEP Graphic Designer Goals Number of Weeks 8 Decreased Palpation Yes: 0-1/4 to TTP assessment above Tenderness Increase Range of Yes: 50-75% WNL Lumbar Extension Motion Increase Strength Yes: 5/5 to abdominals Increase Ability to Yes: 2+ hours without increasing symptoms Sit Improve Oswestry Yes: <7 Score Decrease Subjective Yes: 2-3/10 with above assessment C/O Pain Patient to be Ind w/ Yes Advanced HEP Outpatient Therapy Plan of Care Treatment Plan May Include Therapeutic Exercise Yes Including Home Exercise Program Manual Therapy Yes Techniques Neuromuscular Re- Yes education Therapeutic Yes Activities to Return to Previous Functional/Work Level Gait Training Yes ADL/Self Care Yes Education Mechanical Traction Yes Dry Needling Yes Thermal Modalities Yes Electrical Yes Stimulation Massage Yes Manual Lymphatic Yes Drainage Eval/Re-Eval Yes Frequency Times per week 2 Duration Number of Weeks 8 Addendums This patient is a No candidate for social or vocational rehab ? Patient/Guardian Yes verbally acknowledges understanding of treatment program and consents to further treatment? Patient/Guardian Yes verbally acknowledges understanding of diagnosis, prognosis and goals for treatment? Eval Complexity PT Charges 57923 - Moderate Complexity Shoulder/Elbow Eval Shoulder Objective Measurements Elbow Objective Measurements PHYSICIAN CERTIFICATION: I certify the specified therapy services for Santana Lawler are required, authorized, and reviewed every 30 days.
== END 2025-02-26 23:59 | disposition home or self-care (01) ==
LOC: PT 13:00
PROVIDERS: Visit Provider Family Medicine
DX: M54.50 Low back pain, unspecified (principal); M51.9 Unspecified thoracic, thoracolumbar and lumbosacral intervertebral disc disorder
CPT/HCPCS: 97012; 97014; 97110; 97162; G0283

== ENCOUNTER 2025-03-27 09:56 | Outpatient (RCR) | payer BC, SELFPAY ==
--- NOTE | 2025-03-27 11:36 | HMH.OTOPEV ---
OT Inpatient Evaluation Rehab OT Outpatient Eval Start: 03/27/25 11:19 Freq: Status: Active Protocol: Document 03/27/25 11:19 HOWARD (Rec: 03/27/25 11:36 HOWARD [id number]) E-signed By Maida Brooks, OT Outpatient Therapy Subjective History Subjective History Pt is a 59 yr old male being seen for initial OT evaluation due to L shoulder pain. Pt reports they recently had pain beginning in L shoulder near AC joint . Pt reports that shoulder feels loose. 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 Pt reports that sleep is mainly impacted. Pt reports no impaction during golf, but does feel it hurting during working out if pt lifts something too heavy. Pt reports they are R hand dom. Pt reports they have not had X- ray or MRI at this time. Pt reports pain today is typically 8/10. Pt did not present with palpation tenderness over AC joint or SA joint. Pt did present with clicking of L shoulder when moving in flexion and Abd. New diagnosis of No cancer in past 12 months? Chief Complaint Pain,Clicks,Catches/Locks,Gives out/Unstable,Weakness Symptom Type Sharp,Numbness,Tingling,Shooting Symptoms Relieved By Rest/Positioning Symptoms Aggravated Physical Activity,Lifting By Prior Functional None Limitations Current Functional Reaching,Lifting,Sleeping,Recreation Activity Limitations Symptom Description Activity Dependent Level of pain today 5 (0-10) Pain scale - at its 0 best (0-10) Pain scale - at its 8 worst (0-10) Shoulder/Elbow Eval Shoulder Objective Measurements Posture Shoulder Posture Neutral Sitting Position Shoulder Posture Neutral Standing Position Shoulder ROM Left Shoulder ROM Muscle Weakness,Pain Limitations Shoulder Abduction 150 Active Range of Motion (degrees) Shoulder Flexion 130 Active Range of Motion (degrees) Query Text: Shoulder External 60 Rotation Active Range of Motion ( degrees) Shoulder Internal 60 Rotation Active Range of Motion ( degrees) pain with active ROM left shoulder exam standard full ROM shoulder left exam standard Shoulder MMT Shoulder Abduction 3+ Fair+ Strength Grade Shoulder Flexion 3+ Fair+ Strength Grade Shoulder External 3+ Fair+ Rotation Strength Grade Shoulder Internal 3+ Fair+ Rotation Strength Grade Shoulder Strength Supine Patient Testing Position Elbow Objective Measurements QuickDASH Activities Please rate your ability to do the following activities in the last week by selecting the number below the appropriate response. 1. Open a tight or No difficulty new jar. 2. Do heavy No difficulty instrumentation and control technician (e. g., wash epps, floors). 3. Carry a shopping No difficulty bag or briefcase. 4. Wash your back. No difficulty 5. Use a knife to No difficulty cut food. 6. Recreational No difficulty activities in which you take some force or impact through your arm, shoulder, or hand (e.g., golf, hammering, tennis, etc.). 7. During the past Moderately week, to what extent has your arm, shoulder or hand problem interfered with your normal social activities with family, friends , neighbors or groups? 8. During the past Slightly limited week, were you limited in your work or other regular daily activites as a result of your arm, shoulder or hand problem? 9. Arm, shoulder or Severe hand pain. 10. Tingling (pins Moderate and needles) in your arm, shoulder or hand. 11. During the past Severe difficulty week, how much difficulty have you had sleeping because of the pain in your arm, shoulder or hand? Quick DASH 22 Work Module (optional) The following questions ask about the impact of your arm, shoulder or hand problem on your ability to work (including homemaking if that is your main work role). 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 Yes 1. Using your usual No difficulty technique for your work? 2. Doing your usual No difficulty work because of arm, shoulder or hand pain? 3. Doing your work No difficulty as well as you would like? 4. Spending your No difficulty usual amount of time doing your work? Quick Dash Work 4 Module Score Sports/Performing Arts Module (optional) The following questions relate to the impact of your arm, shoulder or hand problem on playing your musical instrument or sport or both. If you play more than one sport or instrument (or play both), please answer with respect to the activity which is most important to you. Please indicate the Golf/ Working Out sport or instrument which is most important to you: Do you play a sport Yes or instrument? 1. Using your usual No difficulty technique for playing your instrument or sport? 2. Playing your No difficulty musical instrument or sport because of arm, shoulder or hand pain? 3. Playing your Moderate difficulty musical instrument or sport as well as you would like? 4. Spending your Moderate difficulty usual amount of time practicing or playing your instrument or sport? Quick Dash Sports/ 8 Performing Art Score OT Patient Goals OT Patient Goals OT Short Term Short term goals: Patient Goals 1. Pt will increase left shoulder flexion to 140 degrees in order to complete daily overhead tasks independently ~50% of the time. 2. Pt will increase L shoulder abduction to 155 degrees to complete upper body dressing independently ~50% of the time. 3. Pt will increase L shoulder ER/IR to 65 degrees (ER) and 65 degrees (IR) in order to complete lower body dressing (putting on and taking off belt) independently ~50% of the time. 4. Pt will increase strength to 4-/5 throughout left shoulder in order to complete heavier household tasks ( laundry, mopping, vacuuming) independently ~50% of the time. 5. Pt will verbalize decreased pain levels at worst in L shoulder to a 6/10 in order to complete daily ADLs independently ~50% of the time. 6. Pt will demonstrate improved endurance by completing left shoulder exercises for ~20 minutes prior to rest break in order to increase his tolerance for daily work activities. 7. Pt will demonstrate independence with HEP of AAROM exercises to increase overall functional use of left shoulder in daily activities ~75% of the time. 8. Pt will decrease QuickDash Activities score to 20 or below to improve optimal occupational performance in ADLs and IADLs 75% of time. OT [facility] Patient [facility] goals: Goals 1. Pt will increase left shoulder flexion to 150 degrees in order to complete daily overhead tasks independently ~50% of the time. 2. Pt will increase L shoulder abduction to 160 degrees to complete upper body dressing independently ~50% of the time. 3. Pt will increase L shoulder ER/IR to 70 degrees (ER) and 70 degrees (IR) in order to complete lower body dressing (putting on and taking off belt) independently ~50% of the time. 4. Pt will increase strength to 4+/5 throughout left shoulder in order to complete heavier household tasks ( laundry, mopping, vacuuming) independently ~50% of the time. 5. Pt will verbalize decreased pain levels at worst in L shoulder to a 4/10 in order to complete daily ADLs independently ~50% of the time. 6. Pt will demonstrate improved endurance by completing left shoulder exercises for ~30 minutes prior to rest break in order to increase his tolerance for daily work activities. 7. Pt will demonstrate independence with HEP of advanced strengthening exercises to increase overall functional use of L shoulder for daily activities ~90% of the time. 8. Pt will decrease QuickDash Activities score to 15 or below to improve optimal occupational performance in ADLs and IADLs 75% of time. OT Outpatient Assessment Impairments Problems/Impairments Impaired Range of Motion,Impaired Strength,Impaired Endurance,Impaired Lifting,Impaired Recreational Activities,Subjective C/O Pain Prognosis Rehab Potential Good Clinical Impression Consistent with Yes Diagnosis Outpatient Therapy Plan of Care Treatment Plan May Include Therapeutic Exercise Yes Including Home Exercise Program Manual Therapy Yes Techniques Neuromuscular Re- Yes education Therapeutic Yes Activities to Return to Previous Functional/Work Level ADL/Self Care Yes Education Thermal Modalities Yes Electrical Yes Stimulation Ultrasound/ Yes Phonophoresis Iontophoresis Yes Parrafin Yes Orthotics/Bracing/ Yes Splinting Group Therapy for Yes Medicare Eval/Re-Eval Yes Frequency Times per week 2x/wk Duration Number of Weeks 6 weeks Addendums This patient is a No candidate for social or vocational rehab ? Patient/Guardian Yes verbally acknowledges understanding of treatment program and consents to further treatment? Patient/Guardian Yes verbally acknowledges understanding of diagnosis, prognosis and goals for treatment? Eval Complexity OT Charge 50900 - Moderate Complexity PHYSICIAN CERTIFICATION: I certify the specified therapy services for Santana Lawler are required, authorized, and reviewed every 30 days.
== END 2025-03-27 23:59 | disposition home or self-care (01) ==
LOC: OT 09:56
PROVIDERS: Visit Provider Family Medicine
DX: M25.512 Pain in left shoulder (principal)
CPT/HCPCS: 97166

== ENCOUNTER 2025-03-27 11:00 | Outpatient (RCR) | payer BC, SELFPAY ==
--- NOTE | 2025-03-08 15:02 | HMH.RHREAS ---
Rehab Reassessment Rehab OP Re-assessment Start: 03/08/25 13:21 Freq: Status: Active Protocol: Document 03/08/25 13:22 AALIYAH (Rec: 03/08/25 15:02 AALIYAH [id number]) E-signed By Gustavo Frederick, PT Oswestry Index Section 1 Pain Intensity The pain is mild and does not vary much Section 2 Personal Care ( change my way of washing or dressing in order to avoid Washing,Dresing) pain Section 3 Lifting lifting heavy weights off the floor, but I can manage if they are Section 4 Walking I have no pain when walking Section 5 Sitting Pain prevents me from sitting for more than one hour Section 6 Standing I can stand as long as I want without pain Section 7 Sleeping I get pain in bed, but it does not prevent me from sleeping well Section 8 Social Life My social life is normal and gives me no extra pain Section 9 Traveling I get extra pain while traveling, but it does not compel me to seek al Section 10 Changing Degreee of My pain is getting better Pain Score and Risk Level Oswestry Sc 9 Oswestry Risk Level Mild Disability Rehab Re-assessment Subjective Subjective Pt reports that he is approximately 30-40% improved this date. Reports that he is not having pain but would rather describe it as a discomfort. Pt reports that he has recently started seeing a chiropractor which has helped his upper back loosen up but reports little change in his lower back. Pt reports that he is going to see his PCP later this afternoon with hopes to get an MRI. Pt reports that his pain seems to coincide with his stress. Reports that he nearly had a panic attack yesterday, which seemed to cause his LE symptoms to be even worse. Reports that his pain today is a 3/10. Objective Objective Notes PEMA 9 (17 on IE) Lumbar ROM: - Flexion 75% - Lateral Flexion 50% - extension 40% TTP: 2/4 to L3-L5 bilaterally + SLR on R Abdominals 5 Assessment Progress Assessment Progressing as Expected Assessment Notes Pt has undergone 1 month of skilled PT, attending 5 PT sessions, consisting of manual therapy to address lumbar mobility deficits, extension based exercises, modalities and lumbar traction. The pt is responding well to PT at this time. He has demonstrated slight improvements in Lumbar ROM, improvements in abdominal strength and improved PEMA score. He has met several of his STGs but not LTGs at this time. Pt would continue to benefit from skilled PT to address his remaining deficits and promote a return to his PLOF. PT Patient Goals PT Short Term 1. 2/4 to TTP assessment above: MET Patient Goals 2. 25-50% lumbar Extension: MET 3. 4/5 MMT to abdominals MET' 4. Sit 1 hour w/o increasing symptoms NOT MET 5. PEMA <12 MET 6. 5/10 pain w above assessment MET 7. IND w HEP MET PT [facility] Patient 1. 0-4 to TTP Above NOT MET Goals 2. 50-75% WNL Lumbar Extension NOT MET 3. 5/5 MMT to abdominals NOT MET 4. 2+ hours sitting NOT MET 5. PEMA <7 NOT MET 6. 2-3/10 pain with above assessment NOT MET 7. IND with Advanced HEP NOT MET Plan Plan Pt would benefit from continued PT to address remaining impairments stated above, including the following activities. Frequency of Therapy 2/week Duration of Therapy 4 weeks Therapeutic Exercise Yes Including Home Exercise Program Manual Therapy Yes Techniques Neuromuscular Re- Yes education Therapeutic Yes Activities to Return to Previous Functional/Work Level Gait Training Yes Mechanical Traction Yes Dry Needling Yes Thermal Modalities Yes Electrical Yes Stimulation Iontophoresis Yes Massage Yes Manual Lymphatic Yes Drainage Eval/Re-Eval Yes Time and Billing Re-Eval Time 10 Re-Eval Billing 0 Units Charge for PT No reassessment? PHYSICIAN CERTIFICATION: I certify the specified therapy services for Santana Lawler are required, authorized, and reviewed every 30 days.
== END 2025-03-27 23:59 | disposition home or self-care (01) ==
LOC: PT 11:00
PROVIDERS: Visit Provider Family Medicine
DX: M54.50 Low back pain, unspecified (principal); M51.9 Unspecified thoracic, thoracolumbar and lumbosacral intervertebral disc disorder
CPT/HCPCS: 97012; 97014; 97110; 97530; G0283

== ENCOUNTER 2025-05-09 12:56 | Outpatient (CLI) | payer BC, SELFPAY ==
--- NOTE | 2025-05-09 13:00 | US_ITS ---
FINAL REPORT TECHNIQUE: Sonographic images of the kidneys and retroperitoneum were obtained in the longitudinal and transverse planes. CLINICAL HISTORY: HEMATURIA COMPARISON: None FINDINGS: The right kidney measures 10.3 cm in [id number] length. No hydronephrosis, mass, or stone. Cortical echogenicity and thickness are normal. The left kidney measures 12.6 cm in [id number] length. No hydronephrosis, mass, or stone. Cortical echogenicity and thickness are normal. Limited evaluation of the spleen and liver demonstrate no acute abnormality. IMPRESSION: Morphologically normal kidneys bilaterally. Reviewed, Interpreted and Dictated by Prema Healy MD Transcribed by Margarita Mtz Authenticated and [facility]
== END 2025-05-09 23:59 | disposition home or self-care (01) ==
LOC: RAD 12:57
PROVIDERS: PCP Family Medicine; Visit Provider Urology
DX: R31.9 Hematuria, unspecified (principal)
CPT/HCPCS: 76770